=== PATIENT | female | born 1985 | race American Indian/Alaskan Native ===

== ENCOUNTER 2018-08-21 10:54 | Inpatient (IN) | payer MEDICAID ==
[2018-08-21 11:27] VITALS: BMI 25.6
[2018-08-21 11:41] LABS: BASO # 0.02 K/mm3 (0.0-2.0); BASO % 0.2 % (0.0-3.0); EOS % 0.2 % (1.5-5.0); HEMOGLOBIN 13.4 g/dL (12.0-16.0); LYMPH # 1.7 (1.2-3.4); MEAN CELL VOLUME 85.4 fl (80.0-105.0); MEAN CORPUSCULAR HEMOGLOBIN 28.7 pg (25.0-35.0); MEAN CORPUSCULAR HGB CONC 33.6 g/dl (31.0-37.0); MEAN PLATELET VOLUME 10.1 fl (7.0-11.0); MONO # 0.4 (0.1-0.6); MONO % 4.2 % (1.0-6.0); RBC 4.67 10^6/uL (3.5-6.1); RED CELL DISTRIBUTION WIDTH 12.3 % (11.5-14.5); URINE BILIRUBIN NEGATIVE (NEGATIVE); URINE BLOOD NEGATIVE (NEGATIVE); URINE GLUCOSE (UA) NEGATIVE (NEGATIVE); URINE LEUKOCYTE ESTERASE NEGATIVE Leu/uL (NEGATIVE); URINE PROTEIN NEGATIVE mg/dL (<30 mg/dL); URINE UROBILINOGEN 0.2 E.U./dL (<1 E.U./dL); WHITE BLOOD COUNT 9.7 10^3/uL (4.5-11.0)
[2018-08-21 11:42] LABS: URINE APPEARANCE CLEAR (CLEAR); URINE COLOR YELLOW (YELLOW)
[2018-08-21 11:48] LABS: ALB/GLOB RATIO 1.3 (1.1-1.8); ALBUMIN 4.2 g/dL (3.0-4.8); ALT/SGPT 13 U/L (7-56); AST/SGOT 22 U/L (14-36); BLOOD UREA NITROGEN 9 mg/dL (7-21); CALCIUM 9.1 mg/dL (8.4-10.5); GFR NON-AFRICAN AMERICAN > 60
[2018-08-21 11:49] LABS: ACETAMINOPHEN < 10.0 ug/ml (10.0-20.0); SALICYLATE < 1 mg/dL (2.0-20.0)
[2018-08-21 12:02] LABS: BARBITURATES, UR NEGATIVE (NEGATIVE); BENZODIAZEPINES, UR NEGATIVE (NEGATIVE); OPIATES, UR NEGATIVE (NEGATIVE); PHENCYCLIDINE, UR NEGATIVE (NEGATIVE)
[2018-08-21 12:04] LABS: FREE T4 0.91 ng/dL (0.78-2.19)
--- NOTE | 2018-08-21 12:07 | ED PDOC ---
Arrival/HPI - General Chief Complaint: Psychiatric Evaluation Historian: Patient - History of Present Illness Narrative History of Present Illness (Text): 08/21/18 12:02 32 year old F with pmh of Anxiety and depression presents with mom for psychiatric evaluation. Patient reports suicidal ideation w/ plan of action since yesterday. She denies any H.I. or attempts to cut herself or drug OD. She endorses being complaint with medications. Patient reports hx of meeting with psychiatrist but noted it offered little help. LMP 2 months ago. Patient denies any fevers, chills, headache, dizziness, chest pain, shortness of breath, dyspnea on exertion, cough, abdominal pain, nausea, vomiting, diarrhea, back pain, neck pain, or any other complaint. Time/Duration: Prior to Arrival Symptom Onset: Sudden Symptom Course: Unchanged Quality: Aching Activities at Onset: Light Context: Home Past Medical History - Provider Review Nursing Documentation Reviewed: Yes Primary Care Physician: Bahman Russell MD - Infectious Disease Hx of Infectious Diseases: None - Reproductive Menopause: No - Psychiatric Hx Substance Use: No - Anesthesia Hx Anesthesia: No Hx Anesthesia Reactions: No Hx Malignant Hyperthermia: No Family/Social History - Physician Review Nursing Documentation Reviewed: Yes Family/Social History: Unknown Family HX Smoking Status: Never Smoked Hx Alcohol Use: Yes Frequency of alcohol use: Socially Hx Substance Use: No Allergies/Home Meds Allergies/Adverse Reactions: Allergies No Known Allergies Allergy (Verified 08/21/18 11:26) Review of Systems - Physician Review All systems were reviewed & negative as marked: Yes - Review of Systems Constitutional: absent: Fevers ENT: absent: Sore Throat, Rhinorrhea Respiratory: absent: SOB, Cough Cardiovascular: absent: Chest Pain Gastrointestinal: absent: Abdominal Pain, Diarrhea, Nausea, Vomiting Genitourinary Female: absent: Dysuria Musculoskeletal: absent: Arthralgias, Back Pain, Neck Pain Neurological: absent: Headache, Dizziness Psychiatric: Anxiety, Depression, Suicidal Ideation Physical Exam Vital Signs Reviewed: Yes Vital Signs Temp Pulse Resp BP Pulse Ox 08/21/18 11:26 98.7 F 65 18 101/62 100 Temperature: Afebrile Blood Pressure: Normal Pulse: Regular Respiratory Rate: Normal Appearance: Positive for: Well-Appearing, Non-Toxic, Comfortable Pain Distress: None Mental Status: Positive for: Alert and Oriented X 3 - Systems Exam Head: Present: Atraumatic, Normocephalic Pupils: Present: PERRL Extroacular Muscles: Present: EOMI Conjunctiva: Present: Normal Mouth: Present: Moist Mucous Membranes Neck: Present: Normal Range of Motion Respiratory/Chest: Present: Clear to Auscultation, Good Air Exchange. No: Respiratory Distress, Accessory Muscle Use Cardiovascular: Present: Regular Rate and Rhythm, Normal S1, S2. No: Murmurs Abdomen: No: Tenderness, Distention, Peritoneal Signs Back: Present: Normal Inspection Upper Extremity: Present: Normal Inspection. No: Cyanosis, Edema Lower Extremity: Present: Normal Inspection. No: Edema Neurological: Present: GCS=15, CN II-XII Intact, Speech Normal Skin: Present: Warm, Dry, Normal Color. No: Rashes Psychiatric: Present: Alert, Oriented x 3, Normal Insight, Normal Concentration, Depressed Mood, Suicidal Ideation. No: Homicidal Ideation, Hallucinations Medical Decision Making ED Course and Treatment: 08/21/18 12:07 Impression: 32 year old F with pmh of Anxiety and depression presents with mom for psychiatric evaluation. Plan: -- Labs -- EKG -- Xanax -- AES Crsisi evalution -- Urine test -- Reassess and disposition Prior Visits: Notes and results from previous visits were reviewed. Progress Notes: 08/21/18 13:14 Labs reviewed with no evidence of acute pathology. UDS reveals cannabis present. Patient is medically cleared. PES agriculture specialist evaluates patient and deems her cleared for admission. - Lab Interpretations Lab Results: Total Bilirubin 0.3 mg/dL (0.2-1.3) 08/21/18 11:03 AST 22 U/L (14-36) 08/21/18 11:03 ALT 13 U/L (7-56) 08/21/18 11:03 Alkaline Phosphatase 62 U/L (38-126) 08/21/18 11:03 Total Protein 7.5 g/dL (5.8-8.3) 08/21/18 11:03 Albumin 4.2 g/dL (3.0-4.8) 08/21/18 11:03 Globulin 3.3 gm/dL 08/21/18 11:03 Albumin/Globulin Ratio 1.3 (1.1-1.8) 08/21/18 11:03 Urine Color Yellow (YELLOW) 08/21/18 11:03 Urine Appearance Clear (CLEAR) 08/21/18 11:03 Urine pH 6.0 (4.7-8.0) 08/21/18 11:03 Ur Specific [place] 1.025 (1.005-1.035) 08/21/18 11:03 Urine Protein Negative mg/dL (<30 mg/dL) 08/21/18 11:03 Urine Glucose (UA) Negative mg/dL (NEGATIVE) 08/21/18 11:03 Urine Ketones Negative mg/dL (NEGATIVE) 08/21/18 11:03 Urine Blood Negative (NEGATIVE) 08/21/18 11:03 Urine Nitrate Negative (NEGATIVE) 08/21/18 11:03 Urine Bilirubin Negative (NEGATIVE) 08/21/18 11:03 Urine Urobilinogen 0.2 E.U./dL (<1 E.U./dL) 08/21/18 11:03 Ur Leukocyte Esterase Negative Day/uL (NEGATIVE) 08/21/18 11:03 08/21/18 11:03 08/21/18 11:03 Lab Results 08/21/18 12:11: Beta HCG, Quant < 2.39 08/21/18 11:03: Free T4 0.91, TSH 3rd Generation 0.49, Alcohol, Quantitative < 10 08/21/18 11:03: Salicylates < 1 L, Acetaminophen < 10.0 L 08/21/18 11:03: Urine Opiates Screen Negative, Urine Methadone Screen Negative, Ur Barbiturates Screen Negative, Ur Phencyclidine Scrn Negative, Ur Amphetamines Screen Negative, U Benzodiazepines Scrn Negative, U Oth Cocaine Metabols Negative, U Cannabinoids Screen Positive H 08/21/18 11:03: Sodium 140, Potassium 4.0, Chloride 105, Carbon Dioxide 28, Anion Gap 12, BUN 9, Creatinine 0.8, Est GFR ( Amer) > 60, Est GFR (Non- Af Amer) > 60, Random Glucose 97, Calcium 9.1, Magnesium 1.8, Total Bilirubin 0.3, AST 22, ALT 13, Alkaline Phosphatase 62, Total Protein 7.5, Albumin 4.2, Globulin 3.3, Albumin/Globulin Ratio 1.3 08/21/18 11:03: Urine Color Yellow, Urine Appearance Clear, Urine pH 6.0, Ur Specific [place] 1.025, Urine Protein Negative, Urine Glucose (UA) Negative, Urine Ketones Negative, Urine Blood Negative, Urine Nitrate Negative, Urine Bilirubin Negative, Urine Urobilinogen 0.2, Ur Leukocyte Esterase Negative 08/21/18 11:03: WBC 9.7, RBC 4.67, Hgb 13.4, Hct 39.9, MCV 85.4, MCH 28.7, MCHC 33.6, RDW 12.3, Plt Count 264, MPV 10.1, Neut % (Auto) 78.4 H, Lymph % (Auto) 17.0 L, [place] % (Auto) 4.2, Eos % (Auto) 0.2 L, Baso % (Auto) 0.2, Lymph # (Auto) 1.7, [place] # (Auto) 0.4, Eos # (Auto) 0.0, Baso # (Auto) 0.02, Absolute Neuts (auto) 7.63 H I have reviewed the lab results: Yes - RAD Interpretation Radiology Orders: 08/21/18 11:29 CHEST PORTABLE [RAD] Stat - EKG Interpretation EKG Interpretation (Text): 08/21/18 12:09 EKG Sinus bradycardia @ 59bpm. No St elevation. QT interval normal Interpreted by ED Physician: Yes Type: 12 lead EKG - Scribe Statement The provider has reviewed the documentation as recorded by the Daniel Santos All medical record entries made by the Daniel were at my direction and personally dictated by me. I have reviewed the chart and agree that the record accurately reflects my personal performance of the history, physical exam, medical decision making, and the department course for this patient. I have also personally directed, reviewed, and agree with the discharge instructions and disposition. Disposition/Present on Arrival - Present on Arrival Any Indicators Present on Arrival: No History of DVT/PE: No History of Uncontrolled Diabetes: No Urinary Catheter: No History of Decub. Ulcer: No History Surgical Site Infection Following: None - Disposition Have Diagnosis and Disposition been Completed?: Yes Diagnosis: Bipolar 1 disorder Disposition: HOSPITALIZED Disposition Time: 13:16 Patient Plan: Admission Condition: STABLE Discharge Instructions (ExitCare): Bipolar Disorder (DC) Referrals: Bahman Russell MD [Primary Care Provider] - Follow up with primary Forms: [employer] (Bahamian)
[2018-08-21 14:37] VITALS: O2SAT 98
--- NOTE | 2018-08-21 15:46 | RAD ---
Date of service: 08/21/2018 HISTORY: psych sacreen COMPARISON: No prior. TECHNIQUE: 1 view obtained. FINDINGS: LUNGS: No active pulmonary disease. PLEURA: No significant pleural effusion identified, no pneumothorax apparent. CARDIOVASCULAR: No aortic atherosclerotic calcification present. Normal cardiac size. No pulmonary vascular congestion. OSSEOUS STRUCTURES: No significant abnormalities. VISUALIZED UPPER ABDOMEN: Normal. OTHER FINDINGS: None. IMPRESSION: No active disease.
[2018-08-21] MEDS ORDERED: Magnesium Hydroxide Susp 30 ml UD PO PRN (15:53)
[2018-08-21] MEDS ORDERED: Alum-Mag Hydrox-Simethicone Susp (30 mL) PO PRN (15:53)
--- NOTE | 2018-08-21 16:46 | CARD ---
APPROVED REPORT Date of service: 08/21/2018 EKG Measurement Heart [id number] <Conclusion> Sinus bradycardia Otherwise normal ECG
[2018-08-21] MEDS ORDERED: DiphenhydrAMINE 50 mg/ml Inj IM PRN (18:12)
[2018-08-22 08:07] LABS: GLUCOSE,FASTING 95 mg/dL (65-110); HDL CHOLESTEROL 34 mg/dL (29-60)
[2018-08-22 08:18] LABS: LDL CHOLESTEROL 95 mg/dL (0-129)
[2018-08-22 08:25] LABS: FREE T4 0.98 ng/dL (0.78-2.19)
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
--- NOTE | 2018-08-23 18:02 | PCM.PYCHPN ---
Psychiatric Progress Note - Psychiatric Progress Note Patient seen today, length of contact: 35 min Problems Identified/Issues Discussed: History of Present Illness and Precipitating Events: Patient is a single 32 year old female with a psychiatric history of reported Bipolar Disorder, PTSD, EDVIN, and Panic D/O, one prior psychiatric admission x1 year ago at [facility] in [facility], outpatient treatment at [facility] with Dr. Byers x1 year, recent change to her psychiatric medications from Wellbutrin & Risperdal to Invega x1 week ago, no SA, who was BIB [facility] to our ER yesterday 08/21/18 with complaints of depression, SI and anxiety. I met with patient at bedside this morning. She is alert and well-oriented to month, year, location and circumstances. Endorses symptoms of depression with low mood, anxiety, low energy, low frustration tolerance, moodiness, trouble focusing and functioning. Patient has been feeling helpless and admits to SI without plan x 1 week. Patient has been meeting with her psychiatrist with minimal benefit. Patient doesn't believe that risperdal and wellbutrin are beneficial, feels that this combination made her feel worse at times. Patient also reports symptoms consistent with panic attacks as well as history of auditory hallucinations~most recently occurring a couple days ago. Presently denies SI/HI or AVH. Tolerated first dose of Abilify well last night. She denies excessive alcohol use or illicit drug use except for occasional MJA. PSYCHIATRIC HISTORY Patient's first and most recent psych. admission was approximately 1 year ago [facility] in [place], [place]. Patient engages in outpt. services with Dr. Byers at [facility] in [place], [place] for the past year. Her last f/u was a week ago. Wellbutrin 75 mg po daily and Risperdal 2 mg bid were discontinued due to ineffectiveness and Invega 9 mg daily was initiated. ER records indicate patient has a past hx of overmedicating. SOCIAL HISTORY Patient resides with her mother and 9 yo son. Her 2 year old daughter resides with child's father. Patient is unemployed and pending SSI. Patient occasionally smokes marijuana but not frequently. Denies other drug use or excessive alcohol use. UDS was + for THC. Patient smokes approximately 6 cigarettes daily and declined nicotine patch when offered to her. PROGRESS NOTE 08/23/18 I met with patient at bedside again this morning and then again during treatment team meeting. She remains cooperative, alert and well-oriented to month, year, location and circumstances. Grooming is adequate and affect remains constricted, flat and withdrawn. Depression persists however she already feels current combination of medications is better for her. Patient is depressed and vocalizes "I just want to get better, I want to feel better". Patient is coherent and there is no evidence of psychotic symptoms. She denies having any hallucinations thus far on the unit. Delusions were not elicited. She continues to keep herself on the unit though she has been a little more visible. Appears reserved during our treatment team meeting however all she appeared to understand the treatment plan well and denied having any objections to current medication plan. Diagnostic Results: Bipolar Disorder by hx EDVIN Panic Disorder PTSD by hx R/O MDD severe with psychotic sx Cannabis abuse Medication Change: Yes (Prozac increased) Medical Record Reviewed: Yes Mental Status Examination - Cognitive Function Orientation: Person, Place, Situation Attention: WNL Concentration: Poor Association: WNL Fund of Knowledge: WNL - Mood Mood: Depressed, Anxious - Affect Affect: Constricted - Speech Speech: Soft - Formal Thought Process Formal Thought Process: No Impairment, Hallucinations (+history of auditory hallucinations a few days ago) - Suicidal Ideation Suicidal Ideation: No - Homicidal Ideation Homicidal Ideation: No Goal/Treatment Plan - Goal/Treatment Plan Progress Toward Problem(s) and Goals/Treatment Plan: * group, milieu and supportive tx * consultation for discharge plan and social issues * Prozac 10 mg po AM increased to 20 mg po AM for depression and anxiety. On 08/22/18 I reviewed indications, dosing, therapeutic latency and possible s/e and patient consent to trial. * Abilify 5 mg po HS to augment for depression. On 08/22/18 I reviewed indications, dosing, therapeutic latency and possible s/e and patient consent to trial. * klonopin 1 mg q8 prn: anxiety * Sonata 10 mg HS prn: insomnia * Patient smokes approximately 6 cigarettes daily and declined tobacco cessation medication when offered to her. * Vitals reviewed and noted below: 08/22/18 08/22/18 07:00 16:00 Temperature 98.1 F Pulse Rate 71 72 Respiratory 18 Rate Blood Pressure 114/81 102/69 Please refer to ER report dated 08/21/18 for ROS and physical exam findings. Admission labs and results noted below: 08/21/18 12:09 EKG Sinus bradycardia @ 59bpm. No St elevation. QT interval normal 08/22/18 08/22/18 08/22/18 07:45 07:45 07:45 Fasting Glucose 95 Triglycerides 129 Cholesterol 159 LDL Cholesterol Direct 95 HDL Cholesterol 34 Free T4 0.98 TSH 3rd Generation 0.87 RPR Nonreactive Laboratory Tests 08/21/18 08/21/18 08/21/18 11:03 11:03 11:03 WBC 9.7 RBC 4.67 Hgb 13.4 Hct 39.9 MCV 85.4 MCH 28.7 MCHC 33.6 RDW 12.3 Plt Count 264 MPV 10.1 Neut % (Auto) 78.4 H Lymph % (Auto) 17.0 L [place] % (Auto) 4.2 Eos % (Auto) 0.2 L Baso % (Auto) 0.2 Lymph # (Auto) 1.7 [place] # (Auto) 0.4 Eos # (Auto) 0.0 Baso # (Auto) 0.02 Absolute Neuts (auto) 7.63 H Sodium 140 Potassium 4.0 Chloride 105 Carbon Dioxide 28 Anion Gap 12 BUN 9 Creatinine 0.8 Est GFR ( Amer) > 60 Est GFR (Non-Af Amer) > 60 Random Glucose 97 Fasting Glucose Calcium 9.1 Magnesium 1.8 Total Bilirubin 0.3 AST 22 ALT 13 Alkaline Phosphatase 62 Total Protein 7.5 Albumin 4.2 Globulin 3.3 Albumin/Globulin Ratio 1.3 Triglycerides Cholesterol LDL Cholesterol Direct HDL Cholesterol Free T4 TSH 3rd Generation Beta HCG, Quant Urine Color Yellow Urine Appearance Clear Urine pH 6.0 Ur Specific [place] 1.025 Urine Protein Negative Urine Glucose (UA) Negative Urine Ketones Negative Urine Blood Negative Urine Nitrate Negative Urine Bilirubin Negative Urine Urobilinogen 0.2 Ur Leukocyte Esterase Negative Salicylates Urine Opiates Screen Urine Methadone Screen Acetaminophen Ur Barbiturates Screen Ur Phencyclidine Scrn Ur Amphetamines Screen U Benzodiazepines Scrn U Oth Cocaine Metabols U Cannabinoids Screen Alcohol, Quantitative 08/21/18 08/21/18 08/21/18 11:03 11:03 11:03 WBC RBC Hgb Hct MCV MCH MCHC RDW Plt Count MPV Neut % (Auto) Lymph % (Auto) [place] % (Auto) Eos % (Auto) Baso % (Auto) Lymph # (Auto) [place] # (Auto) Eos # (Auto) Baso # (Auto) Absolute Neuts (auto) Sodium Potassium Chloride Carbon Dioxide Anion Gap BUN Creatinine Est GFR ( Amer) Est GFR (Non-Af Amer) Random Glucose Fasting Glucose Calcium Magnesium Total Bilirubin AST ALT Alkaline Phosphatase Total Protein Albumin Globulin Albumin/Globulin Ratio Triglycerides Cholesterol LDL Cholesterol Direct HDL Cholesterol Free T4 0.91 TSH 3rd Generation 0.49 Beta HCG, Quant Urine Color Urine Appearance Urine pH Ur Specific [place] Urine Protein Urine Glucose (UA) Urine Ketones Urine Blood Urine Nitrate Urine Bilirubin Urine Urobilinogen Ur Leukocyte Esterase Salicylates < 1 L Urine Opiates Screen Negative Urine Methadone Screen Negative Acetaminophen < 10.0 L Ur Barbiturates Screen Negative Ur Phencyclidine Scrn Negative Ur Amphetamines Screen Negative U Benzodiazepines Scrn Negative U Oth Cocaine Metabols Negative U Cannabinoids Screen Positive H Alcohol, Quantitative < 10 08/21/18 08/22/18 08/22/18 12:11 07:45 07:45 WBC RBC Hgb Hct MCV MCH MCHC RDW Plt Count MPV Neut % (Auto) Lymph % (Auto) [place] % (Auto) Eos % (Auto) Baso % (Auto) Lymph # (Auto) [place] # (Auto) Eos # (Auto) Baso # (Auto) Absolute Neuts (auto) Sodium Potassium Chloride Carbon Dioxide Anion Gap BUN Creatinine Est GFR ( Amer) Est GFR (Non-Af Amer) Random Glucose Fasting Glucose 95 Calcium Magnesium Total Bilirubin AST ALT Alkaline Phosphatase Total Protein Albumin Globulin Albumin/Globulin Ratio Triglycerides 129 Cholesterol 159 LDL Cholesterol Direct 95 HDL Cholesterol 34 Free T4 0.98 TSH 3rd Generation 0.87 Beta HCG, Quant < 2.39 Urine Color Urine Appearance Urine pH Ur Specific [place] Urine Protein Urine Glucose (UA) Urine Ketones Urine Blood Urine Nitrate Urine Bilirubin Urine Urobilinogen Ur Leukocyte Esterase Salicylates Urine Opiates Screen Urine Methadone Screen Acetaminophen Ur Barbiturates Screen Ur Phencyclidine Scrn Ur Amphetamines Screen U Benzodiazepines Scrn U Oth Cocaine Metabols U Cannabinoids Screen Alcohol, Quantitative
--- NOTE | 2018-08-24 09:04 | PCM.PYCHPN ---
Psychiatric Progress Note - Psychiatric Progress Note Patient seen today, length of contact: 35 min Problems Identified/Issues Discussed: History of Present Illness and Precipitating Events: Patient is a single 32 year old female with a psychiatric history of reported Bipolar Disorder, PTSD, EDVIN, and Panic D/O, one prior psychiatric admission x1 year ago at [facility] in [facility], outpatient treatment at [facility] with Dr. Byers x1 year, recent change to her psychiatric medications from Wellbutrin & Risperdal to Invega x1 week ago, no SA, who was BIB [facility] to our ER yesterday 08/21/18 with complaints of depression, SI and anxiety. I met with patient at bedside this morning. She is alert and well-oriented to month, year, location and circumstances. Endorses symptoms of depression with low mood, anxiety, low energy, low frustration tolerance, moodiness, trouble focusing and functioning. Patient has been feeling helpless and admits to SI without plan x 1 week. Patient has been meeting with her psychiatrist with minimal benefit. Patient doesn't believe that risperdal and wellbutrin are beneficial, feels that this combination made her feel worse at times. Patient also reports symptoms consistent with panic attacks as well as history of auditory hallucinations~most recently occurring a couple days ago. Presently denies SI/HI or AVH. Tolerated first dose of Abilify well last night. She denies excessive alcohol use or illicit drug use except for occasional MJA. PSYCHIATRIC HISTORY Patient's first and most recent psych. admission was approximately 1 year ago [facility] in [place], [place]. Patient engages in outpt. services with Dr. Byers at [facility] in [place], [place] for the past year. Her last f/u was a week ago. Wellbutrin 75 mg po daily and Risperdal 2 mg bid were discontinued due to ineffectiveness and Invega 9 mg daily was initiated. ER records indicate patient has a past hx of overmedicating. SOCIAL HISTORY Patient resides with her mother and 9 yo son. Her 2 year old daughter resides with child's father. Patient is unemployed and pending SSI. Patient occasionally smokes marijuana but not frequently. Denies other drug use or excessive alcohol use. UDS was + for THC. Patient smokes approximately 6 cigarettes daily and declined nicotine patch when offered to her. PROGRESS NOTE 08/24/18 I met with patient at bedside again this morning. She remains cooperative, alert and well-oriented to month, year, location and circumstances. Grooming is adequate and affect is brighter, more reactive and related. She reports that she is "feeling better already". Feels that invega and risperdal weren't just ineffective but were also negative for her mood and functioning such that their discontinuation has felt like improvement for her. She is more hopeful and tolerating prozac and abilify well. Patient is coherent and there is no evidence of psychotic symptoms. She denies having any hallucinations thus far on the unit. Delusions were not elicited. Patient has been more visible and staff note that she is brighter and smiling though overall she still appears constricted and reserved.There have been no behavioral issues on the unit. Diagnostic Results: Bipolar Disorder by hx EDVIN Panic Disorder PTSD by hx R/O MDD severe with psychotic sx Cannabis abuse Medication Change: No Medical Record Reviewed: Yes Mental Status Examination - Cognitive Function Orientation: Person, Place, Situation Attention: WNL Concentration: Poor Association: WNL Fund of Knowledge: WNL - Mood Mood: Depressed, Anxious - Affect Affect: Constricted - Speech Speech: Soft - Formal Thought Process Formal Thought Process: No Impairment, Hallucinations (+history of auditory hallucinations a few days ago) - Suicidal Ideation Suicidal Ideation: No - Homicidal Ideation Homicidal Ideation: No Goal/Treatment Plan - Goal/Treatment Plan Progress Toward Problem(s) and Goals/Treatment Plan: * group, milieu and supportive tx * consultation for discharge plan and social issues * Prozac 10 mg po AM increased to 20 mg po AM for depression and anxiety on 08/23/18. On 08/22/18 I reviewed indications, dosing, therapeutic latency and possible s/e and patient consent to trial. * Abilify 5 mg po HS to augment for depression. On 08/22/18 I reviewed indications, dosing, therapeutic latency and possible s/e and patient consent to trial. * klonopin 1 mg q8 prn: anxiety * Sonata 10 mg HS prn: insomnia * Patient smokes approximately 6 cigarettes daily and declined tobacco cessation medication when offered to her. * Vitals reviewed and noted below: 08/23/18 08/23/18 07:17 16:00 Temperature 97.6 F Pulse Rate 80 67 Respiratory 20 Rate Blood Pressure 86/51 L 108/72 Please refer to ER report dated 08/21/18 for ROS and physical exam findings. Admission labs and results noted below: 08/21/18 12:09 EKG Sinus bradycardia @ 59bpm. No St elevation. QT interval normal 08/22/18 08/22/18 08/22/18 07:45 07:45 07:45 Fasting Glucose 95 Triglycerides 129 Cholesterol 159 LDL Cholesterol Direct 95 HDL Cholesterol 34 Free T4 0.98 TSH 3rd Generation 0.87 RPR Nonreactive Laboratory Tests 08/21/18 08/21/18 08/21/18 11:03 11:03 11:03 WBC 9.7 RBC 4.67 Hgb 13.4 Hct 39.9 MCV 85.4 MCH 28.7 MCHC 33.6 RDW 12.3 Plt Count 264 MPV 10.1 Neut % (Auto) 78.4 H Lymph % (Auto) 17.0 L [place] % (Auto) 4.2 Eos % (Auto) 0.2 L Baso % (Auto) 0.2 Lymph # (Auto) 1.7 [place] # (Auto) 0.4 Eos # (Auto) 0.0 Baso # (Auto) 0.02 Absolute Neuts (auto) 7.63 H Sodium 140 Potassium 4.0 Chloride 105 Carbon Dioxide 28 Anion Gap 12 BUN 9 Creatinine 0.8 Est GFR ( Amer) > 60 Est GFR (Non-Af Amer) > 60 Random Glucose 97 Fasting Glucose Calcium 9.1 Magnesium 1.8 Total Bilirubin 0.3 AST 22 ALT 13 Alkaline Phosphatase 62 Total Protein 7.5 Albumin 4.2 Globulin 3.3 Albumin/Globulin Ratio 1.3 Triglycerides Cholesterol LDL Cholesterol Direct HDL Cholesterol Free T4 TSH 3rd Generation Beta HCG, Quant Urine Color Yellow Urine Appearance Clear Urine pH 6.0 Ur Specific [place] 1.025 Urine Protein Negative Urine Glucose (UA) Negative Urine Ketones Negative Urine Blood Negative Urine Nitrate Negative Urine Bilirubin Negative Urine Urobilinogen 0.2 Ur Leukocyte Esterase Negative Salicylates Urine Opiates Screen Urine Methadone Screen Acetaminophen Ur Barbiturates Screen Ur Phencyclidine Scrn Ur Amphetamines Screen U Benzodiazepines Scrn U Oth Cocaine Metabols U Cannabinoids Screen Alcohol, Quantitative 08/21/18 08/21/18 08/21/18 11:03 11:03 11:03 WBC RBC Hgb Hct MCV MCH MCHC RDW Plt Count MPV Neut % (Auto) Lymph % (Auto) [place] % (Auto) Eos % (Auto) Baso % (Auto) Lymph # (Auto) [place] # (Auto) Eos # (Auto) Baso # (Auto) Absolute Neuts (auto) Sodium Potassium Chloride Carbon Dioxide Anion Gap BUN Creatinine Est GFR ( Amer) Est GFR (Non-Af Amer) Random Glucose Fasting Glucose Calcium Magnesium Total Bilirubin AST ALT Alkaline Phosphatase Total Protein Albumin Globulin Albumin/Globulin Ratio Triglycerides Cholesterol LDL Cholesterol Direct HDL Cholesterol Free T4 0.91 TSH 3rd Generation 0.49 Beta HCG, Quant Urine Color Urine Appearance Urine pH Ur Specific [place] Urine Protein Urine Glucose (UA) Urine Ketones Urine Blood Urine Nitrate Urine Bilirubin Urine Urobilinogen Ur Leukocyte Esterase Salicylates < 1 L Urine Opiates Screen Negative Urine Methadone Screen Negative Acetaminophen < 10.0 L Ur Barbiturates Screen Negative Ur Phencyclidine Scrn Negative Ur Amphetamines Screen Negative U Benzodiazepines Scrn Negative U Oth Cocaine Metabols Negative U Cannabinoids Screen Positive H Alcohol, Quantitative < 10 08/21/18 08/22/18 08/22/18 12:11 07:45 07:45 WBC RBC Hgb Hct MCV MCH MCHC RDW Plt Count MPV Neut % (Auto) Lymph % (Auto) [place] % (Auto) Eos % (Auto) Baso % (Auto) Lymph # (Auto) [place] # (Auto) Eos # (Auto) Baso # (Auto) Absolute Neuts (auto) Sodium Potassium Chloride Carbon Dioxide Anion Gap BUN Creatinine Est GFR ( Amer) Est GFR (Non-Af Amer) Random Glucose Fasting Glucose 95 Calcium Magnesium Total Bilirubin AST ALT Alkaline Phosphatase Total Protein Albumin Globulin Albumin/Globulin Ratio Triglycerides 129 Cholesterol 159 LDL Cholesterol Direct 95 HDL Cholesterol 34 Free T4 0.98 TSH 3rd Generation 0.87 Beta HCG, Quant < 2.39 Urine Color Urine Appearance Urine pH Ur Specific [place] Urine Protein Urine Glucose (UA) Urine Ketones Urine Blood Urine Nitrate Urine Bilirubin Urine Urobilinogen Ur Leukocyte Esterase Salicylates Urine Opiates Screen Urine Methadone Screen Acetaminophen Ur Barbiturates Screen Ur Phencyclidine Scrn Ur Amphetamines Screen U Benzodiazepines Scrn U Oth Cocaine Metabols U Cannabinoids Screen Alcohol, Quantitative
--- NOTE | 2018-08-25 06:25 | PCM.PYCHDC ---
Mental Status Examination - Mental Status Examination Orientation: Person, Place, Situation Memory: Intact Mood: Neutral Affect: Constricted (much improved reactivity) Speech: Appropriate Attention: WNL Concentration: WNL Association: WNL Fund of Knowledge: WNL Formal Thought Process: No Impairment Description of patient's judgement and insight: Good I/J Psychotic Thoughts and Behaviors: Denied AVH or paranoia throughout. No delusions on day of discharge Suicidal Ideation: No Current Homicidal Ideation?: No Discharge Summary - Discharge Note Reason for Hospitalization: Patient is a single 32 year old female with a psychiatric history of reported Bipolar Disorder, PTSD, EDVIN, and Panic D/O, one prior psychiatric admission x1 year ago at [facility] in [facility], outpatient treatment at [facility] with Dr. Byers x1 year, recent change to her psychiatric medications from Wellbutrin & Risperdal to Invega x1 week ago, no SA, who was BIB [facility] to our ER yesterday 08/21/18 with complaints of depression, SI and anxiety. Laboratory Data: Laboratory Tests 08/21/18 08/21/18 08/21/18 11:03 11:03 11:03 WBC 9.7 RBC 4.67 Hgb 13.4 Hct 39.9 MCV 85.4 MCH 28.7 MCHC 33.6 RDW 12.3 Plt Count 264 MPV 10.1 Neut % (Auto) 78.4 H Lymph % (Auto) 17.0 L [place] % (Auto) 4.2 Eos % (Auto) 0.2 L Baso % (Auto) 0.2 Lymph # (Auto) 1.7 [place] # (Auto) 0.4 Eos # (Auto) 0.0 Baso # (Auto) 0.02 Absolute Neuts (auto) 7.63 H Sodium 140 Potassium 4.0 Chloride 105 Carbon Dioxide 28 Anion Gap 12 BUN 9 Creatinine 0.8 Est GFR ( Amer) > 60 Est GFR (Non-Af Amer) > 60 Random Glucose 97 Fasting Glucose Calcium 9.1 Magnesium 1.8 Total Bilirubin 0.3 AST 22 ALT 13 Alkaline Phosphatase 62 Total Protein 7.5 Albumin 4.2 Globulin 3.3 Albumin/Globulin Ratio 1.3 Triglycerides Cholesterol LDL Cholesterol Direct HDL Cholesterol Free T4 TSH 3rd Generation Beta HCG, Quant Urine Color Yellow Urine Appearance Clear Urine pH 6.0 Ur Specific [place] 1.025 Urine Protein Negative Urine Glucose (UA) Negative Urine Ketones Negative Urine Blood Negative Urine Nitrate Negative Urine Bilirubin Negative Urine Urobilinogen 0.2 Ur Leukocyte Esterase Negative Salicylates Urine Opiates Screen Urine Methadone Screen Acetaminophen Ur Barbiturates Screen Ur Phencyclidine Scrn Ur Amphetamines Screen U Benzodiazepines Scrn U Oth Cocaine Metabols U Cannabinoids Screen Alcohol, Quantitative RPR 08/21/18 08/21/18 08/21/18 11:03 11:03 11:03 WBC RBC Hgb Hct MCV MCH MCHC RDW Plt Count MPV Neut % (Auto) Lymph % (Auto) [place] % (Auto) Eos % (Auto) Baso % (Auto) Lymph # (Auto) [place] # (Auto) Eos # (Auto) Baso # (Auto) Absolute Neuts (auto) Sodium Potassium Chloride Carbon Dioxide Anion Gap BUN Creatinine Est GFR ( Amer) Est GFR (Non-Af Amer) Random Glucose Fasting Glucose Calcium Magnesium Total Bilirubin AST ALT Alkaline Phosphatase Total Protein Albumin Globulin Albumin/Globulin Ratio Triglycerides Cholesterol LDL Cholesterol Direct HDL Cholesterol Free T4 0.91 TSH 3rd Generation 0.49 Beta HCG, Quant Urine Color Urine Appearance Urine pH Ur Specific [place] Urine Protein Urine Glucose (UA) Urine Ketones Urine Blood Urine Nitrate Urine Bilirubin Urine Urobilinogen Ur Leukocyte Esterase Salicylates < 1 L Urine Opiates Screen Negative Urine Methadone Screen Negative Acetaminophen < 10.0 L Ur Barbiturates Screen Negative Ur Phencyclidine Scrn Negative Ur Amphetamines Screen Negative U Benzodiazepines Scrn Negative U Oth Cocaine Metabols Negative U Cannabinoids Screen Positive H Alcohol, Quantitative < 10 RPR 08/21/18 08/22/18 08/22/18 12:11 07:45 07:45 WBC RBC Hgb Hct MCV MCH MCHC RDW Plt Count MPV Neut % (Auto) Lymph % (Auto) [place] % (Auto) Eos % (Auto) Baso % (Auto) Lymph # (Auto) [place] # (Auto) Eos # (Auto) Baso # (Auto) Absolute Neuts (auto) Sodium Potassium Chloride Carbon Dioxide Anion Gap BUN Creatinine Est GFR ( Amer) Est GFR (Non-Af Amer) Random Glucose Fasting Glucose 95 Calcium Magnesium Total Bilirubin AST ALT Alkaline Phosphatase Total Protein Albumin Globulin Albumin/Globulin Ratio Triglycerides 129 Cholesterol 159 LDL Cholesterol Direct 95 HDL Cholesterol 34 Free T4 0.98 TSH 3rd Generation 0.87 Beta HCG, Quant < 2.39 Urine Color Urine Appearance Urine pH Ur Specific [place] Urine Protein Urine Glucose (UA) Urine Ketones Urine Blood Urine Nitrate Urine Bilirubin Urine Urobilinogen Ur Leukocyte Esterase Salicylates Urine Opiates Screen Urine Methadone Screen Acetaminophen Ur Barbiturates Screen Ur Phencyclidine Scrn Ur Amphetamines Screen U Benzodiazepines Scrn U Oth Cocaine Metabols U Cannabinoids Screen Alcohol, Quantitative RPR 08/22/18 07:45 WBC RBC Hgb Hct MCV MCH MCHC RDW Plt Count MPV Neut % (Auto) Lymph % (Auto) [place] % (Auto) Eos % (Auto) Baso % (Auto) Lymph # (Auto) [place] # (Auto) Eos # (Auto) Baso # (Auto) Absolute Neuts (auto) Sodium Potassium Chloride Carbon Dioxide Anion Gap BUN Creatinine Est GFR ( Amer) Est GFR (Non-Af Amer) Random Glucose Fasting Glucose Calcium Magnesium Total Bilirubin AST ALT Alkaline Phosphatase Total Protein Albumin Globulin Albumin/Globulin Ratio Triglycerides Cholesterol LDL Cholesterol Direct HDL Cholesterol Free T4 TSH 3rd Generation Beta HCG, Quant Urine Color Urine Appearance Urine pH Ur Specific [place] Urine Protein Urine Glucose (UA) Urine Ketones Urine Blood Urine Nitrate Urine Bilirubin Urine Urobilinogen Ur Leukocyte Esterase Salicylates Urine Opiates Screen Urine Methadone Screen Acetaminophen Ur Barbiturates Screen Ur Phencyclidine Scrn Ur Amphetamines Screen U Benzodiazepines Scrn U Oth Cocaine Metabols U Cannabinoids Screen Alcohol, Quantitative RPR Nonreactive Consultations:: List each consultation separately and include: 1. Reason for request. 2. Findings. 3. Follow-up Consultations: NONE Summary of Hospital Course include:: 1. Description of specific treatment plan utilized for patients during their course of treatmen. 2. Summarize the time- course for resolution of acute symptoms and/or regressed behaviors. 3. Describe issues identified and worked on during hospitalization. 4. Describe medication utilized. 5. Describe medical problems identified and treated. 6. Reassessment of suicide risk Summary of Hospital Course: HPI AND HOSPITAL COURSE Patient is a single 32 year old female with a psychiatric history of reported Bipolar Disorder, PTSD, EDVIN, and Panic D/O, one prior psychiatric admission x1 year ago at [facility] in [facility], outpatient treatment at [facility] with Dr. Byers x1 year, recent change to her psychiatric medications from Wellbutrin & Risperdal to Invega x1 week ago, no SA, who was BIB [facility] to our ER yesterday 4/22/19 with complaints of depression, SI and anxiety. I met with patient at bedside on admission morning. She is alert and well- oriented to month, year, location and circumstances. Endorses symptoms of depression with low mood, anxiety, low energy, low frustration tolerance, moodiness, trouble focusing and functioning. Patient has been feeling helpless and admits to SI without plan x 1 week. Patient has been meeting with her psychiatrist with minimal benefit. Patient doesn't believe that risperdal and wellbutrin are beneficial, feels that this combination made her feel worse at times. She denied excessive alcohol use or illicit drug use except for occasional MJA. Patient also reports symptoms consistent with panic attacks as well as history of auditory hallucinations~most recently occurring a couple days [employer]. These did not recur during admission. She remained cooperative, alert and well-oriented to month, year, location and circumstances. Coherent and logical throughout admission. There was no evidence of psychotic symptoms. She reports that she started feeling better quickly after meds were changed. Feels that invega and risperdal weren't just ineffective but were also negative for her mood and functioning such that their discontinuation has felt like improvement for her. She is more hopeful and tolerating prozac and abilify well. Grooming was good and affect was brighter, more reactive and related by discharge date. There were no behavioral issues on the unit. PSYCHIATRIC HISTORY Patient's first and most recent psych. admission was approximately 1 year ago [facility] in [place], [place]. Patient engages in outpt. services with Dr. Byers at [facility] in [place], [place] for the past year. Her last f/u was a week ago. Wellbutrin 75 mg po daily and Risperdal 2 mg bid were discontinued due to ineffectiveness and Invega 9 mg daily was initiated. ER records indicate patient has a past hx of overmedicating. SOCIAL HISTORY Patient resides with her mother and 9 yo son. Her 2 year old daughter resides with child's father. Patient is unemployed and pending SSI. Patient occasionally smokes marijuana but not frequently. Denies other drug use or excessive alcohol use. UDS was + for THC. Patient smokes approximately 6 cigarettes daily and declined nicotine patch when offered to her. - Final Diagnosis (DSM 5) Condition upon Discharge: STABLE DSM 5: Bipolar Disorder by hx EDVIN Panic Disorder PTSD by hx R/O MDD severe with psychotic sx Cannabis abuse Disposition: HOME/ ROUTINE Follow-up Treatment Plan: * consultation for discharge plan and social issues. Patient is following up with this provider on Tuesday08/28/18 at 11 am at [facility] Rx provided on 08/25/18, 15 days + 2 RF * Prozac 20 mg po AM for depression and anxiety * klonopin 1 mg daily prn: anxiety * Abilify 5 mg po HS for depression and hx of hallucinations * Patient smokes approximately 6 cigarettes daily and declined tobacco cessation medication when offered to her. 08/22/18 08/22/18 08/22/18 07:45 07:45 07:45 Fasting Glucose 95 Triglycerides 129 Cholesterol 159 LDL Cholesterol Direct 95 HDL Cholesterol 34 Free T4 0.98 TSH 3rd Generation 0.87 RPR Nonreactive Laboratory Tests 08/21/18 08/21/18 08/21/18 11:03 11:03 11:03 WBC 9.7 RBC 4.67 Hgb 13.4 Hct 39.9 MCV 85.4 MCH 28.7 MCHC 33.6 RDW 12.3 Plt Count 264 MPV 10.1 Neut % (Auto) 78.4 H Lymph % (Auto) 17.0 L [place] % (Auto) 4.2 Eos % (Auto) 0.2 L Baso % (Auto) 0.2 Lymph # (Auto) 1.7 [place] # (Auto) 0.4 Eos # (Auto) 0.0 Baso # (Auto) 0.02 Absolute Neuts (auto) 7.63 H Sodium 140 Potassium 4.0 Chloride 105 Carbon Dioxide 28 Anion Gap 12 BUN 9 Creatinine 0.8 Est GFR ( Amer) > 60 Est GFR (Non-Af Amer) > 60 Random Glucose 97 Fasting Glucose Calcium 9.1 Magnesium 1.8 Total Bilirubin 0.3 AST 22 ALT 13 Alkaline Phosphatase 62 Total Protein 7.5 Albumin 4.2 Globulin 3.3 Albumin/Globulin Ratio 1.3 Triglycerides Cholesterol LDL Cholesterol Direct HDL Cholesterol Free T4 TSH 3rd Generation Beta HCG, Quant Urine Color Yellow Urine Appearance Clear Urine pH 6.0 Ur Specific [place] 1.025 Urine Protein Negative Urine Glucose (UA) Negative Urine Ketones Negative Urine Blood Negative Urine Nitrate Negative Urine Bilirubin Negative Urine Urobilinogen 0.2 Ur Leukocyte Esterase Negative Salicylates Urine Opiates Screen Urine Methadone Screen Acetaminophen Ur Barbiturates Screen Ur Phencyclidine Scrn Ur Amphetamines Screen U Benzodiazepines Scrn U Oth Cocaine Metabols U Cannabinoids Screen Alcohol, Quantitative 08/21/18 08/21/18 08/21/18 11:03 11:03 11:03 WBC RBC Hgb Hct MCV MCH MCHC RDW Plt Count MPV Neut % (Auto) Lymph % (Auto) [place] % (Auto) Eos % (Auto) Baso % (Auto) Lymph # (Auto) [place] # (Auto) Eos # (Auto) Baso # (Auto) Absolute Neuts (auto) Sodium Potassium Chloride Carbon Dioxide Anion Gap BUN Creatinine Est GFR ( Amer) Est GFR (Non-Af Amer) Random Glucose Fasting Glucose Calcium Magnesium Total Bilirubin AST ALT Alkaline Phosphatase Total Protein Albumin Globulin Albumin/Globulin Ratio Triglycerides Cholesterol LDL Cholesterol Direct HDL Cholesterol Free T4 0.91 TSH 3rd Generation 0.49 Beta HCG, Quant Urine Color Urine Appearance Urine pH Ur Specific [place] Urine Protein Urine Glucose (UA) Urine Ketones Urine Blood Urine Nitrate Urine Bilirubin Urine Urobilinogen Ur Leukocyte Esterase Salicylates < 1 L Urine Opiates Screen Negative Urine Methadone Screen Negative Acetaminophen < 10.0 L Ur Barbiturates Screen Negative Ur Phencyclidine Scrn Negative Ur Amphetamines Screen Negative U Benzodiazepines Scrn Negative U Oth Cocaine Metabols Negative U Cannabinoids Screen Positive H Alcohol, Quantitative < 10 08/21/18 08/22/18 08/22/18 12:11 07:45 07:45 WBC RBC Hgb Hct MCV MCH MCHC RDW Plt Count MPV Neut % (Auto) Lymph % (Auto) [place] % (Auto) Eos % (Auto) Baso % (Auto) Lymph # (Auto) [place] # (Auto) Eos # (Auto) Baso # (Auto) Absolute Neuts (auto) Sodium Potassium Chloride Carbon Dioxide Anion Gap BUN Creatinine Est GFR ( Amer) Est GFR (Non-Af Amer) Random Glucose Fasting Glucose 95 Calcium Magnesium Total Bilirubin AST ALT Alkaline Phosphatase Total Protein Albumin Globulin Albumin/Globulin Ratio Triglycerides 129 Cholesterol 159 LDL Cholesterol Direct 95 HDL Cholesterol 34 Free T4 0.98 TSH 3rd Generation 0.87 Beta HCG, Quant < 2.39 Urine Color Urine Appearance Urine pH Ur Specific [place] Urine Protein Urine Glucose (UA) Urine Ketones Urine Blood Urine Nitrate Urine Bilirubin Urine Urobilinogen Ur Leukocyte Esterase Salicylates Urine Opiates Screen Urine Methadone Screen Acetaminophen Ur Barbiturates Screen Ur Phencyclidine Scrn Ur Amphetamines Screen U Benzodiazepines Scrn U Oth Cocaine Metabols U Cannabinoids Screen Alcohol, Quantitative - Smoking Cessation Smoking Cessation Medication prescribed: No Reason for not providing: Patient smokes approximately 6 cigarettes daily and declined tobacco cessat - Antipsychotic Medications Pt discharged on 2 or more routine antipsychotic medications: No
[2018-08-25 07:16] VITALS: BP 102/69; PULSE 61; RESP 21; TEMP 97.9
== END 2018-08-25 10:01 | disposition home or self-care (01) | DRG 430 ==
LOC: ED 10:54 → ERH 13:13 → PSYC 14:45
PROVIDERS: ADMIT Psychiatry & Neurology Psychiatry; ATTEND Psychologist
DX: F31.9 Bipolar disorder, unspecified (principal); F43.10 Post-traumatic stress disorder, unspecified; F41.0 Panic disorder [episodic paroxysmal anxiety]; F17.210 Nicotine dependence, cigarettes, uncomplicated; F12.10 Cannabis abuse, uncomplicated